=== PATIENT | male | born 1990 ===

== ENCOUNTER → 2020-12-05 | Outpatient (CLI) | payer BC ==
[~2020-12-05] MED LIST: PERCOCET 5-3251 EACH PO
== END | disposition home or self-care (01) ==
LOC: RAD 09:36
PROVIDERS: ATTEND Nurse Practitioner Family
DX: M79.641 Pain in right hand (principal)

== ENCOUNTER → 2020-12-25 | Outpatient (CLI) | payer BC | END | disposition home or self-care (01) | LOC: COVID19 11:18 | PROVIDERS: ATTEND Surgery | DX: Z01.818 Encounter for other preprocedural examination (principal); Z20.822 Contact with and (suspected) exposure to COVID-19 ==

== ENCOUNTER → 2020-12-28 | Day surgery (SDC) | payer BC ==
[2020-12-25 14:07] VITALS: BP 128/77
[~2020-12-28] VITALS: Ht 165.1 cm; Wt 66.7 kg
[2020-12-28 09:22] VITALS: BP 118/74
[2020-12-28 10:33] VITALS: BP 132/95
[2020-12-28 10:48] VITALS: BP 134/91
[2020-12-28 11:03] VITALS: BP 132/96
== END ==
LOC: SDC 12-25 14:00
PROVIDERS: ATTEND Surgery
DX: D48.1 Neoplasm of uncertain behavior of connective and other soft tissue (principal); F17.210 Nicotine dependence, cigarettes, uncomplicated